=== PATIENT | female | born 1995 | race Caucasian/White ===

== ENCOUNTER 2019-06-29 06:57 | Emergency (ER) | payer BC ==
[~2019-06-29] VITALS: Ht 170.2 cm; Wt 113.6 kg
[2019-06-29 08:05] LABS: ALBUMIN 4.6 gm/dL (3.5-5.0); BILIRUBIN,TOTAL 1.4 mg/dL (0.0-1.0); C-REACTIVE PROTEIN 1.7 mg/dL (0.0-0.9); CALCIUM 9.3 mg/dL (8.4-10.2); CREATININE, serum 0.58 (0.52-1.25); POTASSIUM 3.9 mmol/L (3.4-5.0); TOTAL PROTEIN 7.8 gm/dL (6.4-8.2)
[2019-06-29 08:14] LABS: BASO # 0.1 (0.0-0.2); BASO % 0.4 % (0.0-2.0); EOS # 0.1 (0.0-0.7); EOS % 0.8 % (0-4.0); GRAN # 12.7 (1.4-6.5); GRAN % 89.2 % (42.2-75.2); HEMATOCRIT 41.5 % (37.0-47.0); HEMOGLOBIN 15.1 g/dl (12.5-16.0); LYMPH # 0.4 (1.2-3.4); LYMPH % 2.5 % (20.0-51.0); MEAN CELL VOLUME 87 fl (80.0-100.0); MEAN CORPUSCULAR HEMOGLOBIN 32 pg (27.0-31.0); MEAN CORPUSCULAR HGB CONC 36 g/dl (33.0-37.0); MEAN PLATELET VOLUME 9.2 fl (7.4-10.4); MONO # 0.9 (0.1-0.6); MONO % 6.5 % (1.7-9.3); PLATELET COUNT 275 K/mm3 (130-400); RED BLOOD COUNT 4.75 M/mm3 (4.10-5.30); REDCELL DISTRIBUTION WIDTH-CV 11.9 % (11.5-14.5)
[2019-06-29] MEDS ORDERED: CYMBALTA 30MG30 MG PO ×2 (08:41→12:21)
[2019-06-29] MEDS ORDERED: PRIFTIN150 MG PO (08:42)
[2019-06-29] MEDS ORDERED: OTEZLA PO (08:42)
[2019-06-29 09:28] LABS: COLLECTION METHOD CLEAN CATCH
[2019-06-29 09:39] LABS: MUCOUS Present /lpf; PH 7 (5-8); SQUAMOUS EPITHELIAL 0-2 /hpf; URINE APPEARANCE Clear; URINE BACTERIA None Seen /hpf; URINE BILIRUBIN Negative (NEGATIVE); URINE BLOOD 2+ (NEGATIVE); URINE COLOR Yellow; URINE GLUCOSE Negative (NEGATIVE); URINE KETONE 1+ (NEGATIVE); URINE LEUKOCYTE ESTERASE Negative (NEGATIVE); URINE NITRATE Negative (NEGATIVE); URINE PROTEIN(semi-quant) Negative (NEGATIVE); URINE RBC 0-2 /hpf; URINE UROBILINOGEN Negative (NEGATIVE)
[2019-06-29 09:40] VITALS: TEMP 98.8
[2019-06-29] MEDS ORDERED: ZOFRAN ODT4 MG PO (10:37)
[2019-06-29 12:14] VITALS: BP 110/43; PULSE 104
[2019-06-29] MEDS ORDERED: ZYVOX 600MG600 MG PO (12:22)
== END 2019-06-29 12:10 | disposition home or self-care (01) ==
LOC: COL.ER 06:57
PROVIDERS: Emergency Medicine
DX: A08.11 Acute gastroenteropathy due to Norwalk agent (principal); Z88.0 Allergy status to penicillin
CPT/HCPCS: J0780; J1200; J2405; J7030